=== PATIENT | female | born 1960 | race Caucasian/White ===

== ENCOUNTER 2021-02-22 03:59 | Emergency (ER) | payer MEDICARE, BC, SELFPAY ==
[2021-02-22] VITALS (10 sets, daily range): BP systolic 142–179; BP diastolic 70–95; PULSE 70–75; RESP 12–18; TEMP 36.8; O2SAT 95–98; BMI 41.0
--- NOTE | 2021-02-22 04:00 | ECG_ITS ---
APPROVED REPORT Exam: Resting ECG HR:70 bpm ECG Measurements Heart Rate 70 AXES HI 114 P 43 QRSd 168 QRS -89 QT 488 T 96 QTc 527 Conclusion Electronic atrial pacemaker Electronically signed by : Talha Ham MD 02/22/2021 11:44:10
--- NOTE | 2021-02-22 04:09 | XR_ITS ---
PROCEDURE INFORMATION: Exam: XR Chest Exam date and time: 02/22/2021 4:09 AM Age: 60 years old Clinical indication: Shortness of breath; Chest pressure; Prior surgery; Surgery date: <1 month; Patient HX: Pacemaker placed 2 weeks ago, chest pain, nausea, SOA; Additional info: Cp TECHNIQUE: Imaging protocol: XR of the chest. Views: 1 view. COMPARISON: No relevant prior studies available. FINDINGS: Tubes, catheters and devices: Left ICD device noted. Lungs: Patchy right basilar opacity may relate to subsegmental atelectasis versus infiltrates. Pleural spaces: Bibasilar opacities suggestive of small pleural effusions, greater on the left, with or without associated atelectasis. Heart/Mediastinum: The heart demonstrates diffuse enlargement. Bones/joints: Unremarkable. IMPRESSION: 1. Bibasilar opacities suggestive of small pleural effusions, greater on the left, with or without associated atelectasis. 2. Patchy right basilar opacity may relate to subsegmental atelectasis versus infiltrates.
[2021-02-22 05:19] LABS: Basophils # 0.1 K/mm3 (0-0.2); Basophils % 0.8 % (0.1-2.0); Eosinophils # 0.1 K/mm3 (0.0-0.4); Hematocrit 32.4 % (37.0-47.0); Hemoglobin 10.4 g/dL (12.2-16.2); Lymphocytes # 1.4 K/mm3 (0.7-4.5); Lymphocytes % 15.5 % (10-50); Mean Corpuscular Hemoglobin 27.5 pg (27.0-31.2); Mean Corpuscular Volume 85.9 fl (81-99); Mean Platelet Volume 8.4 fl (7.4-10.4); Monocytes # 0.7 K/mm3 (0.1-1.0); Monocytes % 7.7 % (1.7-9.3); Neutrophils # 6.5 K/mm3 (1.8-7.8); Neutrophils % 74.9 % (37.0-80.0); Platelet Count 370 K/mm3 (142-424); Red Blood Count 3.77 M/mm3 (4.20-5.40); Red Cell Distribution Width 16.7 % (11.5-17.5); White Blood Count 8.7 K/mm3 (4.8-10.8)
[2021-02-22 05:19] LABS: Coronavirus 19, PCR Not Detected (NotDetected); Influenza A, PCR Not Detected (NotDetected); Influenza B, PCR Not Detected (NotDetected)
--- NOTE | 2021-02-22 05:21 | HMH.EDCP ---
ED Disposition Condition on Discharge: Fair - Critical Care Critical Care Time: No <Chino Quezada - Last Filed: 02/22/21 08:31> Condition on Discharge: Good - Critical Care Critical Care Time: No <Mele Leach - Last Filed: 02/22/21 11:12> Clinical Impression: Unstable angina pectoris, Pacemaker Disposition: Home, Self-Care Prescriptions: carvediloL [Carvedilol 12.5mg Tab] 12.5 mg PO BID 30 Days #60 tab Isosorbide Mononitrate [Isosorbide Mononitrate ER] 30 mg PO DAILY 30 Days #30 tab.er.24h Furosemide [Lasix 40mg tab] 40 mg PO DAILY 30 Days #30 tab Referrals: Talha Ham MD [Primary Care Provider] - Attestation: On 02/22/21, the high probability of a clinically significant, sudden or life threatening deterioration of the following system(s) required my full and direct attention, intervention and personal management. The time I documented below is in addition to time spent performing reported procedures but includes the following listed in this critical care notation. Medical Decision Making - Medical Records Medical records reviewed: Yes: I reviewed the patient's medical records. - Max Inquiry Pt receiving controlled substance: No - Lab Data Lab results reviewed: Yes: I reviewed the patient's lab results. Result diagrams: 02/22/21 05:00 02/22/21 05:00 - Radiology Data #1 Image(s): Chest Image Reviewed: Yes I reviewed the patient's radiology image Preliminary Findings: Normal/NAD - ECG Data Tracing #1 Arrhythmias present: other (pacemaker) <Chino Quezada - Last Filed: 02/22/21 08:31> - Lab Data Result diagrams: 02/22/21 05:00 02/22/21 05:00 <Mele Leach - Last Filed: 02/22/21 11:12> Vital Signs: 02/22/21 03:57 02/22/21 04:08 02/22/21 04:59 Temperature Source Oral Pulse Rate 72 73 Pulse Rate [Right] 72 Respiratory Rate 18 16 16 Blood Pressure 151/77 H 153/79 H Blood Pressure [Right Arm] 151/77 H Blood Pressure Mean 101 95 Blood Pressure Mean [Right Arm] 101 02 Sat by Pulse Oximetry 97 96 96 Oxygen Delivery Method Nasal Cannula Oxygen Flow Rate (LPM) 3 3 3 02/22/21 05:01 02/22/21 05:31 02/22/21 06:01 Temperature Source Pulse Rate 72 75 72 Pulse Rate [Right] Respiratory Rate 18 16 16 Blood Pressure 151/70 H 151/79 H 157/84 H Blood Pressure [Right Arm] Blood Pressure Mean 89 103 94 Blood Pressure Mean [Right Arm] 02 Sat by Pulse Oximetry 95 98 97 Oxygen Delivery Method Oxygen Flow Rate (LPM) 02/22/21 06:31 02/22/21 07:01 02/22/21 07:31 Temperature Source Pulse Rate 72 75 70 Pulse Rate [Right] Respiratory Rate 12 18 18 Blood Pressure 179/84 H 173/95 H 157/92 H Blood Pressure [Right Arm] Blood Pressure Mean 114 116 110 Blood Pressure Mean [Right Arm] 02 Sat by Pulse Oximetry 97 97 97 Oxygen Delivery Method Oxygen Flow Rate (LPM) - Lab Data Lab Results 02/22/21 05:00: WBC 8.7, RBC 3.77 L, Hgb 10.4 L, Hct 32.4 L, MCV 85.9, MCH 27.5, MCHC 32.0, RDW 16.7, Plt Count 370, MPV 8.4, Neut % (Auto) 74.9, Lymph % (Auto) 15.5, [place] % (Auto) 7.7, Eos % (Auto) 1.0, Baso % (Auto) 0.8, Neut # (Auto) 6.5, Lymph # (Auto) 1.4, [place] # (Auto) 0.7, Eos # (Auto) 0.1, Baso # (Auto) 0.1, ESR 101 H 02/22/21 05:00: Sodium 136, Potassium 4.7, Chloride 101, Carbon Dioxide 25, Anion Gap 14.7, BUN 43 H, Creatinine 1.00, Estimated Creat Clear 116, Estimated GFR 56 L, Est GFR ( Amer) 68, Glucose 213 H, Calcium 9.4, Total Bilirubin 1.0, AST 30, ALT 22, Alkaline Phosphatase 225 H, Troponin I 0.03, C-Reactive Protein 35.0 H, Total Protein 7.7, Albumin 4.0, Globulin 3.7 H, Albumin/Globulin Ratio 1.1, Procalcitonin 0.141 02/22/21 05:00: NT-Pro-B Natriuret Pep 34685 H 02/22/21 05:01: SARS-CoV-2 (PCR) Not detected, Influenza A Untype (PCR) Not detected, Influenza Type B (PCR) Not detected 02/22/21 08:05: Troponin I 0.03 Orders (Tests/Meds): ED MEDICATIONS Discontinued Medications Generic Name Dose R
[2021-02-22 05:23] LABS: Alanine Aminotransferase 22 U/L (12-78); Albumin/Globulin Ratio 1.1 (1.1-1.8); Alkaline Phosphatase 225 U/L (38-126); Anion Gap 14.7 mEq/L (5-15); Aspartate Amino Transferase 30 U/L (14-36); Blood Urea Nitrogen 43 mg/dl (7-17); Calcium 9.4 mg/dl (8.4-10.2); Carbon Dioxide 25 mmol/L (22.0-30.0); Chloride 101 mmol/L (98-107); Creatinine Clearance Estimated 116 mL/min (50-200); Estimated Glomerular Filt Rate 56 ml/min (>60); GFR (African American) 68 ML/MIN (>60); Globulin 3.7 g/dL (1.3-3.2); Glucose 213 mg/dl (74-100); Potassium 4.7 mmoL/L (3.5-5.1); Sodium 136 mmol/L (136-145); Total Protein,Serum 7.7 g/dl (6.3-8.2)
[2021-02-22 05:34] LABS: NT Pro Brain Natriuretic Pep. 14200 pg/mL (0-125)
[2021-02-22 05:37] LABS: Troponin I 0.03 ng/ml (0.00-0.034)
[2021-02-22 05:41] LABS: Procalcitonin 0.141 ng/mL (0.0-2.0)
[2021-02-22 05:59] LABS: Erythrocyte Sedimentation Rate 101 mm/hr (0-30)
--- NOTE | 2021-02-22 06:00 | PC.NURSE ---
requesting CT for PE. Current IV access insufficient for PE study. Will have US IV placed when dayshift RN arrives with US cert.
--- NOTE | 2021-02-22 06:23 | PC.NURSE ---
assisted patient to chair
--- NOTE | 2021-02-22 08:01 | PC.NURSE ---
Jonathan Gamble at bedside for an ultrasound guided IV
--- NOTE | 2021-02-22 08:33 | PC.NURSE ---
Dr. Quezada speaking with KIMI Garrett for cardiology
[2021-02-22 08:36] LABS: Troponin I 0.03 ng/ml (0.00-0.034)
--- NOTE | 2021-02-22 08:50 | PC.NURSE ---
notified rad pt is ready for CT, spoke with inna
--- NOTE | 2021-02-22 08:55 | CT_ITS ---
PROCEDURE: CT ANGIO CHEST PE PROTOCOL CLINCIAL INDICATION: pte Shortness of air and cough COMPARISON: CR XR CHEST PORTABLE from 02/22/2021 TECHNIQUE: IV Contrast: 70ML Isovue 370 Axial images obtained with sagittal and coronal reformats. All CT scans at the facility use one or more dose reduction, viz: automated exposure control, ma/kV adjustment per patient size (including targeted exams where dose is matched to indication, i.e. head), or iterative reconstruction technique. FINDINGS: HEART AND MEDIASTINAL STRUCTURES: There are few scattered mildly prominent mediastinal lymph nodes. No evidence of pulmonary embolus or aortic aneurysm or dissection. Coronary artery calcifications are present. Bipolar pacemaker is present from left subclavian approach. There is mild cardiomegaly. No pericardial effusion. LUNGS AND PLEURAL SPACES: Motion artifact somewhat obscures fine detail. There are atelectatic changes in the lung bases. There is faint mosaic ground-glass attenuation of the lungs. There are small bilateral pleural effusions. No lobar consolidation or collapse is evident. BONY STRUCTURES: No acute bony abnormalities apparent. UPPER ABDOMEN: Unremarkable. ADDITIONAL FINDINGS: There is increased soft tissue density anterior and superior to the pacemaker pack in the left upper chest region anteriorly consistent with underlying hematoma. IMPRESSION: 1. No evidence of pulmonary embolus 2. Cardiomegaly with small bilateral effusions and faint ground-glass attenuation of the lungs which may be due to CHF with mild pulmonary edema. 3. Bibasilar atelectasis. 4. The pacemaker present from left subclavian approach with small hematoma anterior and cephalad to the pacemaker generator Dictated by: Christopher Hopson MD 02/22/2021 10:53 Christopher Hopson MD in [facility] 02/22/2021 10:53
--- NOTE | 2021-02-22 08:59 | HMH.CNCARD ---
History of Present Illness Consult date: 02/22/21 Requesting physician: Chino Quezada Consult reason: chest pain Chief complaint: chest pain History of present illness: 60-year-old female presented to ED with complaints of worsening chest pressure and tightness for the past 24 hours. Patient had been released from [facility] 24 hours ago and was transferred to [facility] for rehabilitation. Patient stated she had been admitted to [facility] on 02-25 in which she underwent heart catheterization with unknown stent placement. Patient states during that time her heart rate dropped and on 02/08/2021 a pacemaker was placed. Pacemaker site noted of the left upper chest wall with Steri-Strips noted. Moderate swelling noted around the pacemaker site. Patient states the swelling has been at the pacemaker site since having pacemaker placed. Patient is to follow-up with beauty sales advisor at [facility] next week. Patient states she will have pacemaker clinic at [facility] next week also. Patient states increased pain around the pacemaker site. Patient complains of worsening shortness of breath states mostly this began from her ride from [facility] to [facility] last evening. Patient is on oxygen supplement at this time. Patient appears not to be in any respiratory distress. Patient denies cough, fever or nausea. Patient noted with edema of the lower extremities. Patient states this is not new for her. Patient states she has not had any medications since being discharged from [facility]. Patient does have history of diabetes and hypertension. History of hyperlipidemia. History of COPD stage IV. Patient states she also has renal disease. Requested reports from [facility]. No reports available at this time. Chest xray:IMPRESSION: 1. Bibasilar opacities suggestive of small pleural effusions, greater on the left, with or without associated atelectasis. 2. Patchy right basilar opacity may relate to subsegmental atelectasis versus infiltrates. Initial work-up is being performed in the ED. Serial troponins x2 are negative. EKG reveals paced rhythm with a heart rate of 70 bpm. Blood pressure is stable. BNP over 14,000. Chest x-ray revealed suggestive of small pleural effusions greater on the left. Patient is currently being worked up with PE protocol per the ED MD. Discussed plan of care with Dr. Garcia. Orders were received from Dr. Garcia. No further cardiac testing is recommended at this time. Medication adjustments do need to be made. Patient will be started on isosorbide 30 mg 1 daily for chest pain. Patient will be started on Lasix 40 mg daily for diastolic dysfunction. We will increase Coreg to 12.5mg twice daily for better BP control. Patient already has a follow-up with beauty sales advisor at [facility]. Please notify cardiology of any changes in patient status. Thank you for allowing cardiology to participate in the care of this patient. [facility] History I have reviewed the patient's past medical history: Yes Medical History: Reports:: Chronic Obstructive Pulmonary Disease (COPD), Coronary Artery Disease, Diabetes Mellitus Type 2, Hyperlipidemia, Hypertension *Have you ever received a pneumonia vaccine?: No *Have you received a flu vaccine this season?: No - *Social History Smoking Status: Former smoker Alcohol Intake: never *Occupational Status:: disabled *Travel in the last 8 weeks: None Family Hx:: No significant family history Meds Home Medications Medication Instructions Recorded Confirmed Type Amlodipine Besylate [Norvasc 5mg 5 mg PO DAILY 02/22/21 02/22/21 History tablet] Aspirin 81 mg PO DAILY 02/22/21 02/22/21 History Cholecalciferol (Vitamin D3) 400 unit PO DAILY 02/22/21 02/22/21 History [Vitamin D3] Clopidogrel Bisulfate [Clopidogrel 75 mg PO DAILY 02/22/21 02/22/21 History 75mg Tab] Cyanocobalamin (Vi
--- NOTE | 2021-02-22 10:42 | PC.NURSE ---
called to check status of reading of CTA he is reading it now
== END 2021-02-22 13:35 | disposition home or self-care (01) ==
PROVIDERS: Emergency Provider Emergency Medicine; PCP Internal Medicine Adolescent Medicine
DX: I20.0 Unstable angina (principal); Z95.0 Presence of cardiac pacemaker; Z88.0 Allergy status to penicillin; Z20.822 Contact with and (suspected) exposure to COVID-19
CPT/HCPCS: 36415; 71045; 71275; 80053; 83880; 84145; 84484; 85025; 85651; 86140; 93005; 99284; Q9967; U0003

== ENCOUNTER 2021-03-22 17:09 | Emergency (ER) | payer MEDICARE, BC, SELFPAY ==
[2021-03-22 16:49] VITALS: BP 135/60; PULSE 74; RESP 16; TEMP 36.8; O2SAT 96; BMI 44.3
[2021-03-22 17:28] VITALS: BP 136/63; PULSE 75; RESP 18; O2SAT 96
[2021-03-22 19:31] LABS: Basophils # 0.1 K/mm3 (0-0.2); Basophils % 0.7 % (0.1-2.0); Eosinophils # 0.3 K/mm3 (0.0-0.4); Eosinophils % 3.5 % (0.1-12.0); Hematocrit 35.4 % (37.0-47.0); Hemoglobin 10.6 g/dL (12.2-16.2); Lymphocytes # 1.1 K/mm3 (0.7-4.5); Lymphocytes % 12.1 % (10-50); Mean Corpuscular HGB Conc 29.9 g/dL (31.8-35.4); Mean Corpuscular Hemoglobin 26.5 pg (27.0-31.2); Mean Corpuscular Volume 88.6 fl (81-99); Mean Platelet Volume 7.9 fl (7.4-10.4); Monocytes # 0.8 K/mm3 (0.1-1.0); Monocytes % 8.9 % (1.7-9.3); Neutrophils # 6.6 K/mm3 (1.8-7.8); Neutrophils % 74.9 % (37.0-80.0); Platelet Count 336 K/mm3 (142-424); Red Cell Distribution Width 15.8 % (11.5-17.5); White Blood Count 8.8 K/mm3 (4.8-10.8)
[2021-03-22 19:47] LABS: Chloride 96 mmol/L (98-107)
[2021-03-22 19:48] LABS: Potassium 4.3 mmoL/L (3.5-5.1); Sodium 134 mmol/L (136-145)
[2021-03-22 19:50] LABS: Alanine Aminotransferase 21 U/L (12-78); Aspartate Amino Transferase 59 U/L (14-36); Blood Urea Nitrogen 69 mg/dl (7-17); Creatinine Clearance Estimated 38 mL/min (50-200); Estimated Glomerular Filt Rate 33 ml/min (>60); GFR (African American) 40 ML/MIN (>60)
[2021-03-22 19:51] LABS: Albumin Level 3.7 g/dl (3.5-5.0); Albumin/Globulin Ratio 0.9 (1.1-1.8); Alkaline Phosphatase 375 U/L (38-126); Anion Gap 16.3 mEq/L (5-15); Bilirubin,Total 0.5 mg/dl (0.2-1.3); Calcium 8.9 mg/dl (8.4-10.2); Carbon Dioxide 26 mmol/L (22.0-30.0); Globulin 4.1 g/dL (1.3-3.2); Glucose 230 mg/dl (74-100); Total Protein,Serum 7.8 g/dl (6.3-8.2)
[2021-03-22 19:56] LABS: C-Reactive Protein 52.1 mg/L (0-4)
[2021-03-22 20:02] LABS: NT Pro Brain Natriuretic Pep. 7950 pg/mL (0-125)
[2021-03-22 20:50] LABS: Erythrocyte Sedimentation Rate 73 mm/hr (0-30)
--- NOTE | 2021-03-22 20:54 | HMH.EDGENADL ---
ED Disposition Clinical Impression: Peripheral edema Cellulitis Qualifiers: Site of cellulitis: extremity Site of cellulitis of extremity: lower extremity Laterality: unspecified laterality Qualified Code(s): L03.119 - Cellulitis of unspecified part of limb Disposition: Home, Self-Care Condition on Discharge: Fair Instructions: DI for Cellulitis -- Adult, DI for Peripheral Edema -- Bilateral Additional Instructions: Vancomycin 1000 mg every 12 hours Betadine bandages to lower legs bilaterally. Change daily. Call Dr. Ham tomorrow for further orders and follow-up. Referrals: Talha Ham MD [Primary Care Provider] - - Critical Care Critical Care Time: No Attestation: On 03/22/21, the high probability of a clinically significant, sudden or life threatening deterioration of the following system(s) required my full and direct attention, intervention and personal management. The time I documented below is in addition to time spent performing reported procedures but includes the following listed in this critical care notation. Medical Decision Making - Max Inquiry Pt receiving controlled substance: No Vital Signs: 03/22/21 16:49 03/22/21 17:28 Temperature 98.3 F Temperature Source Oral Pulse Rate 75 Pulse Rate [Right Radial] 74 Respiratory Rate 16 18 Blood Pressure 136/63 Blood Pressure [Right Arm] 135/60 Blood Pressure Mean [Right Arm] 85 Blood Pressure Source [Right Arm] Automatic Cuff Blood Pressure Position [Right Arm] Sitting 02 Sat by Pulse Oximetry 96 96 Oxygen Delivery Method Room Air - Lab Data Lab Results 03/22/21 19:20: WBC 8.8, RBC 4.00 L, Hgb 10.6 L, Hct 35.4 L, MCV 88.6, MCH 26.5 L, MCHC 29.9 L, RDW 15.8, Plt Count 336, MPV 7.9, Neut % (Auto) 74.9, Lymph % (Auto) 12.1, [place] % (Auto) 8.9, Eos % (Auto) 3.5, Baso % (Auto) 0.7, Neut # (Auto) 6.6, Lymph # (Auto) 1.1, [place] # (Auto) 0.8, Eos # (Auto) 0.3, Baso # (Auto) 0.1 03/22/21 19:20: Sodium 134 L, Potassium 4.3, Chloride 96 L, Carbon Dioxide 26, Anion Gap 16.3 H, BUN 69 H, Creatinine 1.60 H, Estimated Creat Clear 38, Estimated GFR 33 L, Est GFR ( Amer) 40 L, Glucose 230 H, Calcium 8.9, Total Bilirubin 0.5, AST 59 H, ALT 21, Alkaline Phosphatase 375 H, C-Reactive Protein 52.1 H, NT-Pro-B Natriuret Pep 7950 H, Total Protein 7.8, Albumin 3.7, Globulin 4.1 H, Albumin/Globulin Ratio 0.9 L 03/22/21 19:20: ESR 73 H 03/22/21 20:44: Urine Color Yellow, Urine Appearance Clear, Urine pH 5.5, Ur Specific [place] 1.020, Urine Protein Negative, Urine Glucose (UA) Negative, Urine Ketones Negative, Urine Blood Negative, Urine Nitrate Negative, Urine Bilirubin Negative, Urine Urobilinogen 0.2, Ur Leukocyte Esterase Negative, Urine WBC Occasional, Urine Bacteria Trace 03/22/21 21:24: Lactate 1.1 Result diagrams: 03/22/21 19:20 03/22/21 19:20 Orders (Tests/Meds): ED MEDICATIONS Generic Name Dose Route Start Last Admin Trade Name Freq PRN Reason Stop Dose Admin Miscellaneous 1 each 03/22/21 21:30 03/22/21 21:43 Vancomycin Consult Request * 04/21/21 21:29 1 each CONSULT [facility] Administration Discontinued Medications Generic Name Dose Route Start Last Admin Trade Name Freq PRN Reason Stop Dose Admin Furosemide 80 mg 03/22/21 21:27 03/22/21 21:32 Furosemide 100mg/10ml Vial IV 03/22/21 21:28 80 mg ONCE ONE Administration Vancomycin HCl 1,500 mg/ 250 mls @ 125 mls/hr 03/22/21 21:44 03/22/21 21:59 Sodium Chloride IV 03/22/21 21:45 125 mls/hr ONCE ONE Administration ORDERS Category Date Time Status Blood Culture Stat Micro 03/22/21 21:24 Received Wound Culture and Gram Stain Stat Micro 03/22/21 20:50 Ordered - Physician Consults Physician Consulted: Marco Antonio Time: 21:20 Reason -: Pt condition Comment/Response: Discussed clinical findings. He advises to give Lasix 80 mg IV, first dose of vancomycin. Discharge with IV in place back to [facility] with vancomy
[2021-03-22 21:06] LABS: Microscopic, Urine URINE MICROSCOPIC (MICROSCOPIC)
--- NOTE | 2021-03-22 21:23 | PC.NURSE ---
[facility] nurse called for update. Updated her on plan of care, she stated if we didn't call her back she would call and check back shortly.
--- NOTE | 2021-03-22 21:23 | PC.NURSE ---
lab is drawing blood cultures and lactic
[2021-03-22 21:27] LABS: Appearance,Urine CLEAR (Clear); Bilirubin,Urine Negative (Negative); Blood, Urine Negative (Negative); Color,Urine YELLOW (Yellow); Glucose,Urine (UA) Negative (Negative); Ketones,Urine Negative (Negative); Leukocyte Esterase,Urine Negative (Negative); Nitrate,Urine Negative (Negative); PH,Urine 5.5 (5.0-8.5); Protein,Urine Negative (Negative); Urobilinogen,Urine 0.2 EU/dl (0.2)
--- NOTE | 2021-03-22 21:44 | PC.NURSE ---
spoke with hillary @ [facility] loading dose vancomycin 1500mg then 1000mg Q 12 hrs
[2021-03-22 21:46] LABS: Bacteria,Urine Trace /lpf; WBC,Urine Occasional #/hpf (0-3)
[2021-03-22 22:01] LABS: Lactic Acid 1.1 mmol/L (0.7-2.1)
--- NOTE | 2021-03-22 22:35 | PC.NURSE ---
Dressing applied to lower extremities.
[2021-03-22 22:41] VITALS: BP 138/64; PULSE 71; RESP 18; TEMP 36.8; O2SAT 96
== END 2021-03-22 22:58 | disposition home or self-care (01) ==
PROVIDERS: Family Medicine; Emergency Provider Emergency Medicine; PCP Internal Medicine Adolescent Medicine
DX: L03.119 Cellulitis of unspecified part of limb (principal); Z86.74 Personal history of sudden cardiac arrest; Z95.0 Presence of cardiac pacemaker; I50.9 Heart failure, unspecified; E11.9 Type 2 diabetes mellitus without complications; Z89.432 Acquired absence of left foot; Z79.82 Long term (current) use of aspirin; Z79.4 Long term (current) use of insulin; Z79.899 Other long term (current) drug therapy; Z88.0 Allergy status to penicillin; Z88.1 Allergy status to other antibiotic agents; Z88.6 Allergy status to analgesic agent
CPT/HCPCS: 80053; 81001; 83605; 83880; 85025; 85651; 86140; 87040; 87070; 87077; 87186; 87205; 96365; 96375; 99283; J3370